=== PATIENT | female | born 1970 | race Hispanic/Latino ===

== ENCOUNTER 2017-02-21 19:03 | Emergency (ER) | payer OTHER ==
[~2017-02-21 19:03] MED LIST: Iopamidol 370 76% 100 ML VIAL ONE
[2017-02-21] MEDS ORDERED: Ondansetron HCl/PF 4 MG/2 ML Vial ONE (19:35)
[2017-02-21 20:06] LABS: #Lymphocytes 0.6 thou/uL (1.20-3.40); #Neutrophils 2.7 thou/uL (1.40-6.50); %Basophils 0.9 % (0.0-1.0); %Eosinophils 1.4 % (0.0-10.0); %Lymphocytes 17.2 % (21.0-51.0); %Monocytes 0.8 % (0.0-10.0); Bilirubin Negative (Negative); Blood, Urine Trace (Negative); Glucose, Urine (Dipstick) Negative (Negative); Hematocrit 30.3 % (36.0-47.0); Ketone, Urine Negative (Negative); Mean Platelet Volume 5.7 fL (7.4-10.4); Nitrite Negative (Negative); Protein, Urine (Dipstick) Negative (Neg-Trace); Red Blood Cell (RBC) Count 3.34 mill/uL (4.20-5.40); Urobilinogen 0.2 mg/dL (0.2-1.0); White Blood Cell (WBC) Count 3.4 thou/uL (4.8-10.8)
[2017-02-21 20:14] LABS: Bacteria/HPF 1+ HPF (None Seen); Hyaline Casts/LPF 0-3 HYALINE CAST LPF (0-3 Hyaline); Squamous Epithelial 0-3 HPF (0-3); WBC/HPF 0-3 HPF (0-3)
[2017-02-21 20:22] LABS: ALT (SGPT) 13 U/L (8-55); AST (SGOT) 18 U/L (5-34); Alkaline Phosphatase 91 U/L (40-150); Anion Gap 16 mmol/L (10-20); BUN (Urea Nitrogen) 20 mg/dL (7.0-18.7); Bilirubin, Total 0.5 mg/dL (0.2-1.2); Calc. Creatinine Clearance 0 mL/min (70-130); Carbon Dioxide 20 mmol/L (22-29); Chloride 105 mmol/L (98-107); Estimated GFR-MDRD 39; Globulin 3.2 g/dL (2.4-3.5); Lipase 50 U/L (8-78); Protein, Total 6.7 g/dL (6.0-8.3)
--- NOTE | 2017-02-21 21:12 | CT ---
CT ABDOMEN AND PELVIS WITH IV CONTRAST: 02/21/17 HISTORY: 46-year-old female with abdominal pain, right lower quadrant pain being treated for UTI. UTI symptom s are better but right lower quadrant pain is worse. FINDINGS: Comparison is made with noncontrast study of 05/24/13. There is a 1 cm peripheral nodule at the left lung base which is larger than that seen on the previo us study (8 mm). The 1 cm peripheral low density lesion in the right lobe of the liver close to the dome is stable. The patient is post cholecystectomy. The spleen, pancreas and adrenal glands are nor mal. There is a tiny cyst in the left kidney. No left sided hydroureteronephrosis seen. There is a r ight sided moderate hydroureteronephrosis. There is slower enhancement of the right renal cortex com pared to the left and perinephric inflammatory changes on the right. Though no calculus is seen in t he urinary tract, there is thickening and periureteric enhancement of the right distal ureter partic ularly at the UV junction. No calculi is seen in the urinary bladder. No free air, free fluid or lymphadenopathy seen in the abdomen or pelvis. The uterus and ovaries are present. There is fecal material in the colon. An abnormally dilated fluid filled appendix is not d efinitely seen. There are vascular calcifications without evidence of aneurysmal dilatation of the a bdominal aorta. There are mild degenerative changes in the spine. IMPRESSION: 1. Right sided hydroureteronephrosis without evidence of calculus. May be due to recent passage of calculus or wall thickening/mass at the UVJ. Cystoscopy would be helpful. 2. Mild interval enlargement of the left basilar lung nodule since 2013. This should be evaluat ed with a dedicated CT scan of the chest on a nonemergent basis. POS: EDUARDO
[2017-02-21] MEDS ORDERED: Fentanyl 100 MCG/2 ML VIAL ONE (21:26)
[2017-02-21] MEDS ORDERED: Acetaminophen 500 MG TAB ONE (22:48)
== END 2017-02-21 22:55 | disposition home or self-care (01) ==
LOC: SCSER 19:03
DX: N13.2 Hydronephrosis with renal and ureteral calculous obstruction (principal); R91.1 Solitary pulmonary nodule; E11.9 Type 2 diabetes mellitus without complications
CPT/HCPCS: 74177; 80053; 81003; 81015; 81025; 83690; 84703; 85025; 87086; 96361; 96374; 96375; 96376; J2270; J2405; J3010

== ENCOUNTER 2017-02-23 11:04 | Inpatient (IN) | payer OTHER ==
[2017-02-23] MEDS ORDERED: Ondansetron HCl/PF 4 MG/2 ML Vial ONE (11:25)
[2017-02-23] MEDS ORDERED: Acetaminophen 500 MG TAB ONE ×2 (11:25→11:27)
[2017-02-23 11:43] LABS: #Lymphocytes 0.5 thou/uL (1.20-3.40); #Monocytes 0.1 thou/uL (0.11-0.59); #Neutrophils 6.5 thou/uL (1.40-6.50); %Basophils 0.2 % (0.0-1.0); %Eosinophils 0.3 % (0.0-10.0); %Lymphocytes 7.5 % (21.0-51.0); %Monocytes 1.6 % (0.0-10.0); Hematocrit 33.1 % (36.0-47.0); Mean Platelet Volume 6.6 fL (7.4-10.4); Red Blood Cell (RBC) Count 3.59 mill/uL (4.20-5.40); White Blood Cell (WBC) Count 7.2 thou/uL (4.8-10.8)
[2017-02-23] MEDS ORDERED: Sodium Chloride 0.9% 100 ML ONE (11:53)
[2017-02-23] MEDS ORDERED: Fentanyl 100 MCG/2 ML VIAL ONE (11:53)
[2017-02-23] MEDS ORDERED: Cefepime 2 GM VIAL ONE (11:53)
[2017-02-23 11:54] LABS: Lactic Acid - Sepsis 3.1 mmol/L (0.5-2.2)
[2017-02-23 12:01] LABS: ALT (SGPT) 22 U/L (8-55); AST (SGOT) 22 U/L (5-34); Alkaline Phosphatase 127 U/L (40-150); Anion Gap 19 mmol/L (10-20); BUN (Urea Nitrogen) 35 mg/dL (7.0-18.7); Bilirubin, Total 0.7 mg/dL (0.2-1.2); Calc. Creatinine Clearance 0 mL/min (70-130); Calcium 8.6 mg/dL (7.8-10.44); Carbon Dioxide 19 mmol/L (22-29); Chloride 98 mmol/L (98-107); Estimated GFR-MDRD 25; Globulin 3.9 g/dL (2.4-3.5); Lipase 8 U/L (8-78); Protein, Total 7.1 g/dL (6.0-8.3)
[2017-02-23 12:02] LABS: Troponin I 0.033 ng/mL (< 0.028)
--- NOTE | 2017-02-23 12:35 | RAD ---
CHEST 1 VIEW: HISTORY: Sepsis protocol. COMPARISON: Chest 1 view, 05/24/13. FINDINGS: Mild increased perihilar markings. No pneumothorax. No large effusion. Cardiac silhouette and med iastinal contour is within normal limits. IMPRESSION: Mild prominence of the perihilar markings may be sequelae of technique. Followup 2 views full inspi ration may be beneficial. No definite evidence for pneumonia. POS: OFF
--- NOTE | 2017-02-23 12:52 | CT ---
NONCONTRAST ENHANCED CT IMAGES OF THE ABDOMEN AND PELVIS: HISTORY: Right-sided flank pain. FINDINGS: Noncontrast enhanced CT images of the abdomen and pelvis are obtained. IV and oral contrast was not given. FINDINGS: Without IV and oral contrast, I cannot rule out the possibility of GI or solid organ pathology. The lung bases are unremarkable. Some areas of scarring are seen in both lung bases. The liver and spleen are unremarkable. The gallbladder is unremarkable. The adrenal glands are unr emarkable. There is some mild right perirenal fat stranding and a small amount of edema in the righ t pericolic gutter. This may represent an inflammatory process. No definite evidence of obstructin g right renal calculi seen. Differential diagnosis includes inflammatory process in the right kidne y versus early appendicitis. An abnormal appendix is not definitively visualized. Repeat exam with oral and IV contrast should be considered, if clinically indicated. No evidence of descending colonic pathology seen. IMPRESSION: Limited exam with no evidence of renal calculi, as described above. POS: EDUARDO
[2017-02-23 12:55] LABS: Bilirubin Negative (Negative); Blood, Urine Moderate (Negative); Glucose, Urine (Dipstick) Negative (Negative); Ketone, Urine Trace mg/dL (Negative); Nitrite Negative (Negative); Protein, Urine (Dipstick) > or equal to 300 mg/dL (Neg-Trace); Urobilinogen 0.2 mg/dL (0.2-1.0)
[2017-02-23 12:59] LABS: Bacteria/HPF 2+ HPF (None Seen); RBC/HPF 21-50 HPF (0-3); WBC/HPF 21-50 HPF (0-3)
[2017-02-23 15:41] VITALS: BMI 30.3
[2017-02-23] MEDS ORDERED: Sodium Chloride 0.9% 1,000 ML IV SCH (15:41)
[2017-02-23] MEDS ORDERED: Dextrose 50% Abboject 50 ML SYRINGE SLOW IVP PRN (16:47)
[2017-02-23] MEDS ORDERED: Ondansetron HCl/PF 4 MG/2 ML Vial IVP PRN ×2 (16:47→17:30)
[2017-02-23] MEDS ORDERED: Ondansetron ODT 4 MG TAB PO PRN (16:47)
[2017-02-23] MEDS ORDERED: HumaLOG 300 UNITS/3 ML VIAL SC PRN (16:47)
[2017-02-23] MEDS ORDERED: Dextrose 5% in Water 1,000 ML IV PRN (16:47)
[2017-02-23] MEDS ORDERED: Vancomycin HCl 1 GM in Sodium Chloride 0.9% 250 ML 250 ML IVPB SCH (17:00)
[2017-02-23] MEDS ORDERED: Ondansetron ODT 4 MG TAB SL PRN (17:30)
[2017-02-23] MEDS: cefTRIAXone\\ROCEPHIN 2 GM in Sodium Chloride 0.9% 100 ML IVPB SCH (17:34)
[2017-02-23] MEDS ORDERED: Vancomycin HCl 750 MG in Sodium Chloride 0.9% 250 ML 250 ML IVPB SCH (18:00)
--- NOTE | 2017-02-23 18:12 | HP ---
DATE OF ADMISSION: 02/23/2017 PRIMARY CARE PROVIDER: Lori Seth M.D. CHIEF COMPLAINT: Flank pain. HISTORY OF PRESENT ILLNESS: This is a 46-year-old female who initially presented to [facility] Emergency Room with complaints of right flank and abdominal pain. The patient appar ently had been evaluated in the emergency room 72 hours prior to this evaluation with similar sympto ms with evidence of a right hydroureter and treated with Tylenol, fentanyl, morphine, and Zofran. T he patient apparently was instructed to follow up with Urology Service for evaluation and released h ome. The patient states her symptoms progressed in the next 48 hours prompting her to seek medical attention on 02/23/2017. Patient admitted with associated nausea, vomiting, and her last bowel move ment was approximately one week prior to this evaluation. The patient states any movement or pressi ng on her abdomen hurts the area on the right flank region. The patient states her symptoms progres sed and worsened and she noted fever documented in the emergency room of 103 degrees Fahrenheit. Th e patient denied any specific blood in the stool or urine, recent trauma, injury or exposure history . The patient admitted to associated chills, fever, and felt generally weak. The patient denies an y prior cystoscopy or instrumentation or recent surgical procedures. [facility] patient received intravenous normal saline, fentanyl, IV cefepime, Zofran, and Tyl enol with multiple markers consistent with sepsis. CT imaging of the abdomen and pelvis showed mild stranding in the perinephric region with associated right hydroureter consistent with pyelonephriti s. PAST MEDICAL HISTORY: 1. Diabetes mellitus type 2, insulin requiring, poor control. 2. Hypertension. PAST SURGICAL HISTORY: 1. Status post cholecystectomy. 2. Status post hernia repair. CURRENT MEDICATIONS: 1. Tramadol 50 mg p.o. q.4-6 hours p.r.n. 2. Zofran ODT 4 mg p.o. q.6 hours p.r.n. 3. Bydureon pen 2 mg subcutaneously every 7 days. 4. Glargine insulin 15 units subcutaneously daily. 5. Synthroid 25 mcg 1 tablet p.o. daily. 6. Losartan 50 mg 1 tablet p.o. daily. 7. Actos 45 mg 1 tablet p.o. daily. 8. Zocor 40 mg p.o. at bedtime. 9. Metformin 1000 mg p.o. q.a.m. ALLERGIES: To LISINOPRIL. FAMILY HISTORY: Positive for diabetes mellitus. SOCIAL HISTORY: The patient resides in [place], [place]. No current alcohol, tobacco or illicit drug u se. Accompanied by her mother and daughter. REVIEW OF SYSTEMS: The following complete review of systems was negative, unless otherwise mentione d in the HPI or below: Constitutional: Weight loss or gain, ability to conduct usual activities. Skin: Rash, itching. Eyes: Double vision, pain. ENT/Mouth: Nose bleeding, neck stiffness, pain, tenderness. Cardiovascular: Palpitations, dyspnea on exertion, orthopnea. Respiratory: Shortness of breath, wheezing, cough, hemoptysis, fever or night sweats. Gastrointestinal: Poor appetite, abdominal pain, heartburn, nausea, vomiting, constipation, or diar dory. Genitourinary: Urgency, frequency, dysuria, nocturia. Musculoskeletal: Pain, swelling. Neurologic/Psychiatric: Anxiety, depression. Allergy/Immunologic: Skin rash, bleeding tendency. Otherwise negative except as stated per HPI. PHYSICAL EXAMINATION: VITAL SIGNS: Currently, blood pressure 82/46, pulse 124, respiratory rate 18, temperature 98.4 degr ees Fahrenheit, T-max 103.1 degrees Fahrenheit, O2 saturation 92% on room air. GENERAL APPEARANCE: This is a 46-year-old female, alert and responsive, in mild to moderat e distress. HEENT: Pupils are equal, round, and reactive to light and accommodation. Extraocular muscles are i ntact. No scleral icterus, no conjunctival injection. Nares patent. OP is clear. Oral mucosa dry . NECK: Supple, no cervical adenopathy, no thyromegaly, no carotid bruits, no JVD appreciated. Cervi panfilo spine with full active and passive range of motion. CHEST: Lungs are clear to auscultation bilaterally. CARDIOVASCULAR: S1 and S2 with tachycardia. ABDOMEN: Round, obese with tenderness to palpation in the right flank, right upper quadrant and rig ht lower quadrant. No rebound or guarding noted. Bowel sounds are positive in all four quadrants. No palpable mass. EXTREMITIES: Warm and dry with fair turgor. No clubbing, cyanosis or asymmetric edema appreciated. Pulses palpable distally at the dorsalis pedis, posterior tibial, and popliteal arteries bilateral ly. Capillary refill less than 2 seconds. NEUROLOGIC: Cranial nerves II-XII are grossly intact. No focal or lateralizing signs appreciated. PERTINENT LABORATORY DATA AND X-RAY FINDINGS: Sodium 131, potassium 4.6, chloride 98, CO2 of 19, BU N 35, creatinine 2.11 with estimated GFR of 25, glucose 293, lactic acid level ranged between 1.03-3 .1, calcium 8.6. LFTs within normal limits. Troponin I 0.033, albumin 3.2, and lipase 8. CBC show ed white blood cell count of 7.2, hemoglobin 12, hematocrit 33, platelet count 211 with 90% neutroph ils. Urinalysis positive for protein greater than 300, moderate blood, trace ketones, trace leukocy te esterase with 21-50 RBCs and WBCs per high powered field, 2+ bacteria. Urine culture from 2016 showed no growth at [address] of the abdomen and pelvis dated 02/23/2017 showed no evidence of obstructing renal calculi. Mild right perirenal fat stranding and small amount of edema in the right pericolic gutter. Portable chest x-ray dated 02/23/2017 showed no acute cardiopulmonary proce ss. EKG dated 02/23/2017 by my interpretation shows sinus tachycardia with rates in the 150s. Norm al R-wave progression noted in the precordial leads. Normal axis. No acute ST-T wave changes appre ciated. ASSESSMENT AND PLAN: 1. Sepsis with acute organ dysfunction. The patient will be admitted to the intermediate care unit . We will continue general sepsis protocol. It appears patient's presentation consistent with pyel onephritis and urinary source. We will continue vancomycin 1 gram IV q.12 hours with additional cef triaxone 2 grams IV q.24 hours. Continue aggressive intravenous fluid hydration with normal saline at 150 mL per hour. Await final urine and blood cultures. Serial lactic acid per protocol. 2. Right pyelonephritis. See #1 above. Continue IV antibiotic therapy and monitor clinical respon se. Continue aggressive IV fluid hydration and encourage increased free water intake. 3. Acute kidney injury. Suspect secondary to #1. Continue IV fluid hydration, avoid nephrotoxic a gents, and contrast media. Hold nephrotoxic medications including metformin. 4. Hyponatremia. Suspect secondary to acute dehydration and hyperglycemia. Continue fluid managem ent as discussed previously. Repeat sodium level in the a.m. 5. Chronic normocytic anemia. Repeat CBC in the a.m. No current evidence to suggest acute blood l oss. Hold nonsteroidal antiinflammatory drugs and anticoagulation. 6. Diabetes mellitus type 2, insulin requiring. We will check A1c level in the a.m. for general co ntrol. Insulin sliding scale for reflexive coverage. ADA diet. Accu-Cheks a.c. and at bedtime. 7. Hypotension. Secondary to sepsis and volume depletion. Continue IV fluid hydration as describe d previously. Avoid antihypertensives. Serial blood pressure assessment. 8. Prophylaxis. Sequential compression devices while in bed. Pepcid 20 mg p.o. b.i.d. 9. Code status is FULL. Surrogate medical decision maker is the patient's mother.
[2017-02-23] MEDS: Acetaminophen 500 MG TAB PO PRN (20:35)
[2017-02-23] MEDS: Sodium Chloride 0.9% 1,000 ML IV SCH (20:36)
[2017-02-23] MEDS ORDERED: Famotidine 20 MG TAB PO SCH (21:00)
--- NOTE | 2017-02-23 21:29 | CON ---
DATE OF SERVICE: 02/23/2017 SERVICE: Pulmonary Medicine. HISTORY OF PRESENT ILLNESS: The patient is a 46-year-old female with past medical history significant for a recent urinary tract infection. She presented to the emergency department yesterd ay with complaints of abdominal discomfort and flank pain. She was having high fevers for a period of 3-4 days. She also had dysuria consistent with previous episodes that she has had of urinary tra ct infection. She was ultimately discharged from the emergency department after a negative CT of th e belly. These symptoms persisted and she continued to have nausea and vomiting. She started getti ng lightheaded and weak and was brought back to the emergency department where a repeat CT scan conf irmed her pyelonephritis. She got 3 liters of IV fluids and is feeling a little bit better but cont inues to have fairly considerable tenderness. Otherwise, she has no difficulty with breathing or ch est discomfort. PAST MEDICAL HISTORY: 1. Hypertension. 2. Type 2 diabetes mellitus. PAST SURGICAL HISTORY: 1. Cholecystectomy. 2. Hernia repair. ALLERGIES: No known drug allergies. MEDICATIONS: List of her inpatient medications was reviewed. No updates were made at this time. SOCIAL HISTORY: Negative for alcohol, tobacco, or illicit drug use. She has no exposure to chemica ls, asbestos, or tuberculosis. FAMILY HISTORY: Noncontributory. REVIEW OF SYSTEMS: General, head, ears, eyes, nose, throat, cardiovascular, respiratory, GI, , mu sculoskeletal, neurologic, and skin is negative except as mentioned in the HPI. PHYSICAL EXAMINATION: VITAL SIGNS: Afebrile, pulse 124, blood pressure 82/46, respirations 18, saturation 92% on room air . GENERAL: The patient is awake and alert, in no apparent distress. LUNGS: Excellent air entry. There is no prolonged expiratory phase. No crackles are appreciated. HEART: Tachycardic. Regular. ABDOMEN: Soft, nontender, nondistended, bowel sounds positive. MUSCULOSKELETAL: No cyanosis or clubbing. There is no pitting in the bilateral lower extremities. NEUROLOGIC: Grossly nonfocal. LABORATORY DATA: WBC 3.4 with 80% neutrophils. It has increased to 7.2 and her neutrophil count is currently 91%. INR 1.0. PH 7.4, pCO2 of 37. Sodium 131, which is trending downward. Creatinine 2.11, up trending and well above baseline of 0.8. Liver function studies are otherwise unremarkable . Lactate was 3.1 but has now cleared to 1.0. Lipase is normal. Troponin 0.033. Urinalysis is po sitive for protein, ketones, blood but negative for nitrites. She has 21-50 white blood cells. Thi s is significantly worse compared to 2 days ago. Urine test was unremarkable on the 7th. Blood sugar 293. IMAGING STUDIES: 1. CT of the abdomen and pelvis is a noncontrasted study. There is no evidence of stones. There a re right-sided inflammatory changes that are perhaps consistent with pyelonephritis. 2. Chest x-ray demonstrates no acute cardiopulmonary abnormality. No evidence for consolidating pn eumonia. ASSESSMENT: 1. Severe sepsis. 2. Pyelonephritis. 3. Acute kidney injury. 4. Non-ST elevation myocardial infarction. 5. Type 2 diabetes mellitus. PLAN: We will provide the patient with little bit of insulin. I agree with the antibiotics. She h as no significant cultures previously and so the current selection is more than adequate to cover he r issue. Since her blood pressures are marginal and she had good response to the initial 3 liters, we will provide her with one additional liter. Interestingly, the hydronephrosis noted from 2 days ago has completely resolved. As such, I do not think a Urology consultation is currently indicated. Pulmonary Critical Care will continue to follow the patient while she remains in this location.
[2017-02-24] MEDS: Acetaminophen 500 MG TAB PO PRN (04:02)
[2017-02-24] MEDS: Sodium Chloride 0.9% 1,000 ML IV SCH (04:03)
[2017-02-24 04:57] LABS: Band 14 % (5-11); Hematocrit 28.6 % (36.0-47.0); Mean Platelet Volume 7.2 fL (7.4-10.4); Neutrophil 80 % (42-75); Red Blood Cell (RBC) Count 2.88 mill/uL (4.20-5.40); White Blood Cell (WBC) Count 14.5 thou/uL (4.8-10.8)
[2017-02-24 05:19] LABS: ALT (SGPT) 13 U/L (8-55); AST (SGOT) 17 U/L (5-34); Alkaline Phosphatase 100 U/L (40-150); Anion Gap 13 mmol/L (10-20); BUN (Urea Nitrogen) 28 mg/dL (7.0-18.7); Bilirubin, Total 0.2 mg/dL (0.2-1.2); Calc. Creatinine Clearance 54 mL/min (70-130); Calcium 6.8 mg/dL (7.8-10.44); Carbon Dioxide 16 mmol/L (22-29); Chloride 111 mmol/L (98-107); Estimated GFR-MDRD 36; Globulin 2.8 g/dL (2.4-3.5)
[2017-02-24] MEDS: Levothyroxine Sodium 25 MCG TAB PO SCH (05:54)
[2017-02-24] MEDS ORDERED: Potassium Chloride 20 MEQ TAB PO SCH (08:30)
[2017-02-24] MEDS ORDERED: Sodium Chloride 0.45% 1,000 ML IV SCH ×2 (08:30→10:01)
[2017-02-24] MEDS ORDERED: Non-Formulary Item 1 EACH (Insulin Glargine,Hum.Rec.Anlog [Toujeo Solostar] 15 UNITS) SQ SCH (09:00)
[2017-02-24] MEDS ORDERED: FLU VACC QS2017-18 36 mo. & older 0.5 ML SYRINGE IM ONE (09:00)
[2017-02-24] MEDS: Insulin Detemir 100 UNITS/ML 15 UNITS in Pre-Filled Syringe 1 EACH SC SCH (09:12)
--- NOTE | 2017-02-24 10:15 | PRG ---
DATE OF SERVICE: 02/24/2017 SERVICE: Pulmonary Medicine. INTERVAL HISTORY: The patient is doing really quite remarkable. Her kidney injury is improving. She continues to have persistent abdominal discomfort. She got some morphine yesterday evening, but had some sweats and other types of discomfort associated with that although it did help with her pain. She denies any current allergies to the MORPHINE. Otherwise, there has been no interval change to her condition. Her blood pressures are much improved. PHYSICAL EXAMINATION: VITAL SIGNS: Afebrile, pulse 99, blood pressure 97/59, respirations 16, saturation 97% on room air. GENERAL: Patient is awake, alert, in no apparent distress. LUNGS: Excellent air entry. There is no prolonged expiratory phase, wheezing, rhonchi or crackles. HEART: Normal rate, regular. ABDOMEN: Soft, nontender, nondistended, bowel sounds positive. MUSCULOSKELETAL: No cyanosis or clubbing. No pitting in the bilateral lower extremities. NEUROLOGIC: Grossly nonfocal. LABORATORY DATA: WBC 14.5, hemoglobin 9.2, platelets 179,000. Neutrophil count is 80% and the band count is 14%. Creatinine 1.54 and gently down trending. BUN 28, bicarbonate 16 with a normal/improving anion gap. Liver function studies remain unremarkable. Blood cultures x2 are growing gram negative rods/E. coli. Urine culture negative to date. ASSESSMENT: 1. Severe sepsis. 2. Pyelonephritis. 3. Acute kidney injury. 4. Non-ST elevation myocardial infarction. 5. Type 2 diabetes mellitus. 6. Recent hydronephrosis which subsequently resolved on repeat CT scan. 7. Obstructive sleep apnea. 8. Obesity hypoventilation syndrome. PLAN: We will continue with the Rocephin. Vancomycin will be discontinued for the time being while we follow up the results of the sensitivities. Her temperature profile is improving. Her blood pressure is stabilized. As such, I think it is reasonable to transition her out of the ICU to the medical unit. Will continue to follow up for 1 additional day. VEE
[2017-02-24] MEDS: Fentanyl 100 MCG/2 ML VIAL SLOW IVP PRN (10:16)
[2017-02-24] MEDS ORDERED: Ketorolac Tromethamine 30 MG/ML VIAL IVP SCH (11:45)
--- NOTE | 2017-02-24 14:11 | PDOC.PN ---
- Subjective Encounter Start Date: 02/24/17 Encounter Start Time: 14:00 Subjective: f/u for sepsis and suspected pyelonephritis. Blood cx showing E. coli -: and tx with Rocephin currently. Still with R flank pain, nausea and -: tachycardia. - Objective Resuscitation Status: Resuscitation Status FULL:Full Resuscitation MAR Reviewed: Yes Vital Signs & Weight: Vital Signs (12 hours) Temp Pulse Resp BP Pulse Ox 02/24/17 11:03 98.2 F 97 16 141/83 H 97 02/24/17 08:00 97.9 F 99 16 97 02/24/17 07:00 97.9 F 99 16 97/59 L 97 02/24/17 03:34 99 02/24/17 03:33 98.6 F 112 H 19 90/51 L 99 Weight Weight 166 lb I&O: 02/23/17 02/24/17 02/25/17 06:59 06:59 06:59 Intake Total 4000 Output Total 1000 Balance 3000 Result Diagrams: 02/24/17 03:52 02/24/17 03:52 Additional Labs: Accuchecks 02/24/17 02/24/17 02/23/17 10:56 05:57 21:04 POC Glucose 181 H 150 H 166 H 02/23/17 02/23/17 17:02 14:15 POC Glucose 170 H 216 H Microbiology 02/23/17 12:42 Urine clean catch Urine Culture - Preliminary NO GROWTH AT 12 HOURS 02/23/17 11:30 Venous blood - Right Arm Blood Culture - Preliminary Gram Negative Temo 02/23/17 11:25 Venous blood - Left Arm Blood Culture - Preliminary Escherichia coli Laboratory Tests 02/23/17 02/23/17 02/24/17 11:25 11:25 03:52 WBC 7.2 Neutrophils % 90.4 H Neutrophils % (Manual) 80 H Band Neuts % (Manual) 14 H Carbon Dioxide 19 L Creatinine 2.11 H EKG Reviewed by me: Yes (Tele - Sinus tachycardia in 120's) Phys Exam - Physical Examination alert, responsive in mild distress HEENT: PERRLA, oral pharynx no lesions Neck: no JVD, supple Respiratory: no wheezing, clear to auscultation bilateral tachycardic R flank tenderness Gastrointestinal: soft, no distention, positive bowel sounds Musculoskeletal: no edema, pulses present Neurological: normal sensation, moves all 4 limbs Psychiatric: A&O x 3 Skin: normal turgor, cap refill <2 seconds Dx/Plan (1) Sepsis with acute organ dysfunction Code(s): A41.9 - SEPSIS, UNSPECIFIED ORGANISM; R65.20 - SEVERE SEPSIS WITHOUT SEPTIC SHOCK Status: Acute Comment: Secondary to E. coli, Continue Rocephin 2gm IV q24h, await final sensitivities, continue IVF's (2) Pyelonephritis Code(s): N12 - TUBULO-INTERSTITIAL NEPHRITIS, NOT SPCF ACUTE OR CHRONIC Status: Acute Comment: R-side involvement by CT imaging, continue Rocephin (3) OLGA (acute kidney injury) Code(s): N17.9 - ACUTE KIDNEY FAILURE, UNSPECIFIED Status: Acute Comment: Secondary to sepsis and volume depletion, improving, continue IVF's, avoid nephrotoxic meds and contrast, repeat BMP in am (4) E coli bacteremia Code(s): R78.81 - BACTEREMIA Status: Acute Comment: See above (5) Tachycardia Code(s): R00.0 - TACHYCARDIA, UNSPECIFIED Status: Acute Comment: Continue tx outlined previously, IVF's, monitor decompensation (6) Hypotension Status: Acute Comment: continue volume replacement, avoid antihypertensives (7) DM II (diabetes mellitus, type II), controlled Code(s): E11.9 - TYPE 2 DIABETES MELLITUS WITHOUT COMPLICATIONS Status: Chronic Comment: Continue Levemir 15u sc daily, ISS - Plan plan discussed w/ family, continue antibiotics, DVT proph w/SCDs continue supportive care -: Add Levaquin 750mg IV x 1 dose today -: Continue Rocephin 2gm IV q24h -: Await final sensitivities -: Toradol 30mg IV q6h * AM lab: BMP, CBC
[2017-02-24] MEDS: Sodium Chloride 0.45% 1,000 ML IV SCH (15:52)
[2017-02-24] MEDS: Ketorolac Tromethamine 30 MG/ML VIAL IVP SCH ×2 (16:54→22:46)
[2017-02-24] MEDS ORDERED: Ketorolac Tromethamine 30 MG/ML VIAL IVP PRN (18:00)
[2017-02-24] MEDS: cefTRIAXone\\ROCEPHIN 2 GM in Sodium Chloride 0.9% 100 ML IVPB SCH (18:55)
[2017-02-25] MEDS: Sodium Chloride 0.45% 1,000 ML IV SCH ×4 (00:29→22:42)
[2017-02-25] MEDS: Fentanyl 100 MCG/2 ML VIAL SLOW IVP PRN (03:21)
[2017-02-25] MEDS: Ketorolac Tromethamine 30 MG/ML VIAL IVP SCH ×2 (04:27→10:28)
[2017-02-25 05:05] LABS: Anion Gap 12 mmol/L (10-20); BUN (Urea Nitrogen) 21 mg/dL (7.0-18.7); Calc. Creatinine Clearance 66 mL/min (70-130); Calcium 7.4 mg/dL (7.8-10.44); Carbon Dioxide 16 mmol/L (22-29); Chloride 111 mmol/L (98-107); Estimated GFR-MDRD 45
[2017-02-25] MEDS: Levothyroxine Sodium 25 MCG TAB PO SCH (05:29)
[2017-02-25 09:43] LABS: Hematocrit 33.4 % (36.0-47.0); Mean Platelet Volume 7.6 fL (7.4-10.4); Red Blood Cell (RBC) Count 3.33 mill/uL (4.20-5.40); White Blood Cell (WBC) Count 11.9 thou/uL (4.8-10.8)
[2017-02-25 10:18] LABS: Band 17 % (5-11); Neutrophil 77 % (42-75)
[2017-02-25] MEDS: Insulin Detemir 100 UNITS/ML 15 UNITS in Pre-Filled Syringe 1 EACH SC SCH (10:29)
[2017-02-25] MEDS ORDERED: Bisacodyl 5 MG TAB PO PRN (11:27)
[2017-02-25] MEDS ORDERED: Sodium Chloride 0.45% 1,000 ML IV SCH (11:27)
[2017-02-25] MEDS ORDERED: Furosemide 20 MG/2 ML VIAL SLOW IVP SCH (11:30)
--- NOTE | 2017-02-25 11:47 | PRG ---
DATE OF SERVICE: 02/25/2017 SERVICE: Pulmonary Medicine INTERVAL HISTORY: The patient is doing fine from cardiovascular and respiratory standpoint. She is breathing comfortably. She continues to have a little bit of flank pain. Otherwise, there has bee n no interval change to her condition. PHYSICAL EXAMINATION: VITAL SIGNS: Afebrile, pulse 119, blood pressure 118/81, respirations 16, saturation 99% on room ai r. GENERAL: The patient is awake, alert, in no apparent distress. LUNGS: Decent air entry with no prolonged expiratory phase, wheezing, rhonchi or crackles. HEART: Normal rate, regular. ABDOMEN: Soft, nontender, nondistended. Bowel sounds positive. MUSCULOSKELETAL: No cyanosis or clubbing. There is no pitting in the bilateral lower extremities. GENITOURINARY: No Kathleen. NEUROLOGIC: Grossly nonfocal. LABORATORY DATA: WBC 11.9, hemoglobin 10.7, platelets 194,000 with a neutrophil count that has drop ped to 77%. Her band count is 17%. Creatinine 1.27, which continues to trend downward, BUN 21. Bi carbonate is stable at 16 with an anion gap that is normalizing. Chloride is normal. Sodium 135. Blood cultures x2 are growing gram negative sekou and/or E. coli. Urine culture is negative to date. ASSESSMENT: 1. Severe sepsis. 2. Pyelonephritis. 3. Acute kidney injury, improving. 4. Non-ST elevation myocardial infarction. 5. Type 2 diabetes mellitus. 6. Recent hydronephrosis which subsequently resolved on repeat CT scan. 7. Herpes of the lip. PLAN: I will initiate antiviral medication. We are awaiting sensitivities on the gram-negative sekou . Rocephin will be continued for the time being. White blood cell count is trending downward. Tem perature profile is actually improving. From my perspective, the patient is stable for transition o ut of IMCU to the floor. She is 10 liters up for this hospital stay. As such, I will provide her w ith a small dose of Lasix.
--- NOTE | 2017-02-25 12:01 | PDOC.PN ---
- Subjective Encounter Start Date: 02/25/17 Encounter Start Time: 11:59 Patient seen at bedside. Still having tachycardia but asymptomatic. Still with significant RLQ and R Flank pain. - Objective Resuscitation Status: Resuscitation Status FULL:Full Resuscitation MAR Reviewed: Yes Vital Signs & Weight: Vital Signs (12 hours) Temp Pulse Resp BP Pulse Ox 02/25/17 11:48 98.7 F 123 H 18 135/79 02/25/17 08:00 98.9 F 119 H 16 99 02/25/17 07:00 98.9 F 119 H 16 118/81 99 02/25/17 03:37 98.6 F 111 H 17 122/75 98 Weight Weight 167 lb 9.6 oz I&O: 02/24/17 02/25/17 02/26/17 06:59 06:59 06:59 Intake Total 4000 3410 Output Total 1000 1400 Balance 3000 2009 Result Diagrams: 02/25/17 04:08 02/25/17 04:08 Additional Labs: Accuchecks 02/25/17 02/25/17 02/24/17 11:07 05:32 21:49 POC Glucose 135 H 76 126 H 02/24/17 17:03 POC Glucose 124 H Phys Exam - Physical Examination Constitutional: NAD HEENT: moist MMs Neck: no JVD Respiratory: no wheezing, clear to auscultation bilateral Cardiovascular: RRR Gastrointestinal: soft Right Flank pain/CVA tenderness Musculoskeletal: pulses present, edema present Neurological: normal sensation, moves all 4 limbs Psychiatric: normal affect, A&O x 3 Dx/Plan (1) OLGA (acute kidney injury) Code(s): N17.9 - ACUTE KIDNEY FAILURE, UNSPECIFIED Status: Acute (2) E coli bacteremia Code(s): R78.81 - BACTEREMIA Status: Acute Comment: See above (3) Pyelonephritis Code(s): N12 - TUBULO-INTERSTITIAL NEPHRITIS, NOT SPCF ACUTE OR CHRONIC Status: Acute (4) Tachycardia Code(s): R00.0 - TACHYCARDIA, UNSPECIFIED Status: Acute (5) DM II (diabetes mellitus, type II), controlled Code(s): E11.9 - TYPE 2 DIABETES MELLITUS WITHOUT COMPLICATIONS Status: Chronic Comment: Continue Levemir 15u sc daily, ISS - Plan cont current plan of care, plan discussed w/ family, continue antibiotics, DVT proph w/SCDs * Change Abx therapy to Zosyn for broader coverage and anaerobic therapy. * Recheck CT of the abdomen to reevaluate pyelonephritis and rule out appendicitis * Continue IV fluids after CT scan * Start Acyclovir for blisters * CMET in AM *
[2017-02-25] MEDS ORDERED: Ketorolac Tromethamine 30 MG/ML VIAL IVP PRN (12:05)
[2017-02-25] MEDS: Acyclovir 400 mg Tablet PO SCH ×3 (12:48→21:04)
[2017-02-25] MEDS: Piperacillin/Tazobactam 3.375 GM in Sodium Chloride 0.9% 100 ML IVPB SCH ×2 (12:50→22:30)
--- NOTE | 2017-02-25 13:37 | CT ---
CT ABDOMEN AND PELVIS WITH CONTRAST: HISTORY: Right-sided abdominal pain. Evaluate for pyelonephritis. COMPARISON: None. TECHNIQUE: Multiple contiguous axial images were obtained in a CT of the abdomen with contrast. Coronal reform ats were performed. FINDINGS: There is abnormal enhancement of the right kidney compared to the left with a tiger-striped appearan ce. This is consistent with pyelonephritis. Subtle stranding changes are seen surrounding the righ t kidney. There is no significant hydronephrosis on either side. The patient is status post cholecystectomy. There is a hypodensity in the right lobe of the liver, which is too small to definitely characterize but likely represents a cyst. The adrenal glands, spl een, and pancreas are unremarkable. No free air or free fluid is seen in the abdomen or pelvis. The reproductive organs are unremarkabl e. The large and small bowel are unremarkable. The appendix is unremarkable. No abdominal or pelv ic lymphadenopathy is seen. There are small bilateral pleural effusions with adjacent atelectasis. The osseous structures and a bdominal wall soft tissues are unremarkable. IMPRESSION: 1. Right pyelonephritis. 2. Hepatic cyst. 3. Small bilateral pleural effusions with adjacent atelectasis. POS: [facility]
[2017-02-25] MEDS ORDERED: ISOVUE-370 76%-LOCM 1 ML ONE (16:10)
[2017-02-25] MEDS: cefTRIAXone\\ROCEPHIN 2 GM in Sodium Chloride 0.9% 100 ML IVPB SCH (21:50)
[2017-02-25] MEDS: Acetaminophen 500 MG TAB PO PRN (22:48)
[2017-02-26] MEDS: Piperacillin/Tazobactam 3.375 GM in Sodium Chloride 0.9% 100 ML IVPB SCH ×2 (05:23→11:54)
[2017-02-26 05:31] LABS: ALT (SGPT) 13 U/L (8-55); AST (SGOT) 16 U/L (5-34); Alkaline Phosphatase 114 U/L (40-150); Anion Gap 11 mmol/L (10-20); BUN (Urea Nitrogen) 15 mg/dL (7.0-18.7); Bilirubin, Total 0.2 mg/dL (0.2-1.2); Calc. Creatinine Clearance 65 mL/min (70-130); Calcium 7.5 mg/dL (7.8-10.44); Carbon Dioxide 19 mmol/L (22-29); Chloride 108 mmol/L (98-107); Estimated GFR-MDRD 45; Globulin 3.2 g/dL (2.4-3.5); Protein, Total 5.4 g/dL (6.0-8.3)
[2017-02-26 05:47] LABS: Band 6 % (5-11); Hematocrit 29.6 % (36.0-47.0); Mean Platelet Volume 7.1 fL (7.4-10.4); Neutrophil 65 % (42-75); Reactive Lymphocytes 1 % (0-10); Red Blood Cell (RBC) Count 3.05 mill/uL (4.20-5.40); Toxic Granulation SLIGHT; White Blood Cell (WBC) Count 6.8 thou/uL (4.8-10.8)
[2017-02-26] MEDS: Levothyroxine Sodium 25 MCG TAB PO SCH (06:10)
[2017-02-26] MEDS: Sodium Chloride 0.45% 1,000 ML IV SCH (06:13)
[2017-02-26] MEDS: Acyclovir 400 mg Tablet PO SCH ×5 (08:48→20:25)
[2017-02-26] MEDS: Insulin Detemir 100 UNITS/ML 15 UNITS in Pre-Filled Syringe 1 EACH SC SCH (08:48)
--- NOTE | 2017-02-26 13:54 | PDOC.PN ---
- Subjective Encounter Start Date: 02/26/17 Encounter Start Time: 13:52 Patient seen and examined. No new complaints. No overnight events - Objective Resuscitation Status: Resuscitation Status FULL:Full Resuscitation MAR Reviewed: Yes Vital Signs & Weight: Vital Signs (12 hours) Temp Pulse Resp BP Pulse Ox 02/26/17 12:00 99.6 F 112 H 18 140/84 100 02/26/17 08:00 99.6 F 117 H 20 99 02/26/17 07:38 99.6 F 117 H 20 133/74 99 02/26/17 04:00 98.3 F 103 H 20 128/76 99 Weight Weight 166 lb I&O: 02/25/17 02/26/17 02/27/17 06:59 06:59 06:59 Intake Total 3410 3672.5 Output Total 1400 3300 Balance 2009 372.5 Result Diagrams: 02/26/17 03:58 02/26/17 03:58 Additional Labs: Accuchecks 02/26/17 02/26/17 02/25/17 11:29 06:12 21:07 POC Glucose 242 H 135 H 160 H 02/25/17 16:10 POC Glucose 153 H EKG Reviewed by me: Yes (Tele ST) Phys Exam - Physical Examination Constitutional: NAD Respiratory: no wheezing, no rhonchi Cardiovascular: no rub tachycardic Gastrointestinal: soft, non-tender, positive bowel sounds Musculoskeletal: no edema Neurological: non-focal, moves all 4 limbs Dx/Plan (1) Sepsis with acute organ dysfunction Code(s): A41.9 - SEPSIS, UNSPECIFIED ORGANISM; R65.20 - SEVERE SEPSIS WITHOUT SEPTIC SHOCK Status: Acute (2) E coli bacteremia Code(s): R78.81 - BACTEREMIA Status: Acute (3) Pyelonephritis Code(s): N12 - TUBULO-INTERSTITIAL NEPHRITIS, NOT SPCF ACUTE OR CHRONIC Status: Acute Comment: Rt side (4) OLGA (acute kidney injury) Code(s): N17.9 - ACUTE KIDNEY FAILURE, UNSPECIFIED Status: Acute (5) Sinus tachycardia Code(s): R00.0 - TACHYCARDIA, UNSPECIFIED Status: Acute Comment: due to sepsis (6) DM2 (diabetes mellitus, type 2) Status: Chronic (7) Obesity (BMI 30.0-34.9) Code(s): E66.9 - OBESITY, UNSPECIFIED Status: Chronic - Plan cont current plan of care, continue antibiotics, DVT proph w/lovenox, DVT proph w/SCDs * DC Zosyn * Cont Ceftriaxone * AM labs * Cont IVF * Add Lovenox * Critical care following Review of Systems - Review of Systems Constitutional: Fever Respiratory: negative: Cough, Dry, Shortness of Breath, Hemoptysis, SOB with Excertion, Pleuritic Pain, Sputum, Wheezing Cardiovascular: negative: Chest Pain, Palpitations, Orthopnea, Paroxysmal Noc. Dyspnea, Edema, Light Headedness, Other - Medications/Allergies Allergies/Adverse Reactions: Allergies Allergy/AdvReac Type Severity Reaction Status Date / Time lisinopril Allergy Verified 02/23/17 15:15 Medications: Current Medications Acetaminophen (Tylenol) 1,000 mg PO Q6H PRN PRN Reason: Headache/Fever or Mild Pain Last Admin: 02/25/17 22:48 Dose: 1,000 mg Acyclovir (Zovirax) 400 mg PO 5XD YAMILE Last Admin: 02/26/17 11:53 Dose: 400 mg Bisacodyl (Dulcolax) 10 mg PO DAILYPRN PRN PRN Reason: Constipation Last Admin: 02/25/17 16:45 Dose: 10 mg Dextrose/Water (Dextrose 50%) 25 gm SLOW IVP PRN PRN PRN Reason: Hypoglycemia Fentanyl (Sublimaze) 50 mcg SLOW IVP Q2H PRN PRN Reason: Moderate to Severe Pain (6-10) Last Admin: 02/25/17 03:21 Dose: 50 mcg Glucagon (Glucagon) 1 mg IM PRN PRN PRN Reason: Hypoglycemia Dextrose/Water (D5w) 1,000 mls @ 0 mls/hr IV .Q0M PRN; As Directed PRN Reason: Hypoglycemia Insulin Detemir 15 units/ (Miscellaneous Medication) 0.15 mls @ 0 mls/hr SC DAILY YAMILE Last Admin: 02/26/17 08:48 Dose: 0.15 mls Sodium Chloride (1/2 Normal Saline) 1,000 mls @ 100 mls/hr IV .Q10H YAMILE Last Admin: 02/26/17 06:13 Dose: 1,000 mls Ceftriaxone Sodium 2 gm/ (Sodium Chloride) 100 mls @ 200 mls/hr IVPB 2200 YAMILE Piperacillin Sod/Tazobactam (Sod 3.375 gm/ Sodium Chloride) 100 mls @ 200 mls/ hr IVPB 0500,1100,1700,2300 [facility] Last Admin: 02/26/17 11:54 Dose: 100 mls Insulin Human Lispro (Humalog) 0 units SC .MODERATE SLIDING SC PRN PRN Reason: Moderate Correctional Scale Last Admin: 02/26/17 12:45 Dose: 4 unit Insulin Human Lispro (Humalog) 0 units SC .BEDTIME SLIDING SC PRN PRN Reason: Bedtime Correctional Scale Ketorolac Tromethamine (Toradol) 15 mg IVP Q6H PRN PRN Reason: Pain Stop: 03/02/17 12:06 Last Admin: 02/25/17 16:50 Dose: 15 mg Levothyroxine Sodium (Synthroid) 25 mcg PO 0600 [facility] Last Admin: 02/26/17 06:10 Dose: 25 mcg Ondansetron HCl (Zofran Odt) 4 mg PO Q6H PRN PRN Reason: Nausea/Vomiting Ondansetron HCl (Zofran) 4 mg IVP Q6H PRN PRN Reason: Nausea/Vomiting Last Admin: 02/24/17 11:36 Dose: 4 mg Sodium Chloride (Flush - Normal Saline) 10 ml IVF Q12HR [facility] Last Admin: 02/26/17 08:52 Dose: Not Given Sodium Chloride (Flush - Normal Saline) 10 ml IVF PRN PRN PRN Reason: Saline Flush
[2017-02-26] MEDS ORDERED: HumaLOG 300 UNITS/3 ML VIAL SC PRN (14:00)
[2017-02-26] MEDS ORDERED: Sodium Chloride 0.45% 1,000 ML IV SCH (15:04)
--- NOTE | 2017-02-26 17:23 | PRG ---
DATE OF SERVICE: 02/26/2017 SERVICE: Pulmonary Medicine. INTERVAL HISTORY: The patient is doing outstanding from a cardiovascular and respiratory standpoint. Her side discomfort has actually improved a little bit. She denies any current fevers, chills, nausea or vomiting. Overnight, there were no overnight events. PHYSICAL EXAMINATION: VITAL SIGNS: Afebrile with a T-max 99.8, pulse 112, blood pressure 140/84, respirations 18, saturation 100% on room air. GENERAL: Patient is awake, alert, in no apparent distress. LUNGS: Decreased air entry. I do not appreciate prolonged expiratory phase, wheezing or crackles. HEART: Normal rate, regular. ABDOMEN: Soft, nontender, nondistended. Bowel sounds positive. MUSCULOSKELETAL: No cyanosis or clubbing. No pitting in the bilateral lower extremities. NEUROLOGIC: Nonfocal. LABORATORY DATA: WBC 6.8, hemoglobin 9.9, platelets 214,000. Creatinine stable at 1.28. Bicarb 19 and improving. Anion gap is normal. Sodium and chloride are slightly low. AST and ALT fall within normal limits. Blood cultures are growing E. coli in 2/2 which were essentially pansensitive. Urine culture is negative to date. ASSESSMENT: 1. Severe sepsis, improving. 2. Pyelonephritis. 3. Acute kidney injury, improving. 4. Non-ST elevation myocardial infarction. 5. Type 2 diabetes mellitus. 6. Lip herpes. PLAN: We will continue supportive care. At this point, we can deescalate her from the Zosyn to the fluoroquinolone. It is reasonable to go to p.o. medication, continue for a total duration of at least 14 days. Pulmonary Critical Care will continue to follow while she remains in this location, but from my perspective, she is stable for transition to the floor. She remains significantly volume overloaded and will provide her with one dose of Lasix once again. MTDD
[2017-02-26] MEDS: Acetaminophen 500 MG TAB PO PRN (17:51)
[2017-02-26] MEDS ORDERED: cefTRIAXone\\ROCEPHIN 2 GM in Sodium Chloride 0.9% 100 ML IVPB SCH (22:00)
[2017-02-27] MEDS: Acyclovir 400 mg Tablet PO SCH ×5 (00:17→21:04)
[2017-02-27] MEDS: Acetaminophen 500 MG TAB PO PRN ×2 (03:53→15:55)
[2017-02-27 04:07] LABS: #Eosinphils 0.1 thou/uL (0.0-0.7); #Lymphocytes 0.9 thou/uL (1.20-3.40); #Monocytes 0.6 thou/uL (0.11-0.59); #Neutrophils 5.8 thou/uL (1.40-6.50); %Lymphocytes 12.2 % (21.0-51.0); %Monocytes 8.1 % (0.0-10.0); Hematocrit 30.4 % (36.0-47.0); Mean Platelet Volume 6.6 fL (7.4-10.4); Red Blood Cell (RBC) Count 3.16 mill/uL (4.20-5.40); White Blood Cell (WBC) Count 7.4 thou/uL (4.8-10.8)
[2017-02-27 04:28] LABS: Anion Gap 12 mmol/L (10-20); BUN (Urea Nitrogen) 12 mg/dL (7.0-18.7); Calc. Creatinine Clearance 73 mL/min (70-130); Calcium 8.2 mg/dL (7.8-10.44); Carbon Dioxide 19 mmol/L (22-29); Chloride 108 mmol/L (98-107); Estimated GFR-MDRD 51; Magnesium 1.5 mg/dL (1.6-2.6)
[2017-02-27] MEDS: Levothyroxine Sodium 25 MCG TAB PO SCH (05:57)
[2017-02-27] MEDS: Insulin Detemir 100 UNITS/ML 15 UNITS in Pre-Filled Syringe 1 EACH SC SCH (08:50)
[2017-02-27] MEDS: Enoxaparin Sodium 30 MG/0.3 ML SYRINGE SC SCH (08:50)
[2017-02-27] MEDS ORDERED: Furosemide 20 MG/2 ML VIAL SLOW IVP SCH ×2 (09:00→14:00)
[2017-02-27] MEDS ORDERED: Magnesium Sulfate 4 GM in Sodium Chloride 0.9% 250 ML 250 ML IVPB SCH (14:00)
--- NOTE | 2017-02-27 14:00 | PRG ---
DATE OF SERVICE: 02/27/2017 SERVICE: Pulmonary Medicine. INTERVAL HISTORY: The patient is doing really well from a respiratory standpoint. She continues to have a little lower extremity swelling, but this has little improved with her Lasix. She denies an y current fevers, chills, nausea, vomiting or chest discomfort. Her belly pain is improving dramati ariadna. She is wondering how long she needs to be in the hospital. I have suggested that this will be up to her admitting service. PHYSICAL EXAMINATION: VITAL SIGNS: Afebrile, pulse 104, blood pressure 135/76, respirations 16, and saturation 99% on mercedes m air. GENERAL: The patient is awake and alert, in no apparent distress. LUNGS: Decent air entry with no prolonged expiratory phase, wheezing or rhonchi. Minimal crackles are present. HEART: Normal rate, regular. ABDOMEN: Soft, nontender, and nondistended. There is no rebound or guarding today. GENITOURINARY: No Kathleen catheter in place. NEUROLOGIC: Grossly nonfocal. LABORATORY DATA: WBC 7.4, hemoglobin 10.5, and platelets 253,000. Creatinine 1.15 and trending toña nward. Sodium 135, chloride 108. Bicarb remains low at 19. Anion gap is stable at 12. Magnesium 1.5. Blood cultures x2 are growing E. coli which is pansensitive. ASSESSMENT: 1. Severe sepsis, improving. 2. Pyelonephritis. 3. Acute kidney injury, resolving. 4. Non-ST elevation myocardial infarction. 5. Type 2 diabetes mellitus. 6. Lip herpes. PLAN: I will give her another dose of Lasix. Magnesium will be replaced. At this time, she is no ongoing requirements for Pulmonary or Critical Care opinion. I will switch her over to an oral fluo roquinolone. From a purely respiratory perspective, she is stable for transition out of the [facility]. She will need at least 2 weeks of antibiotics.
--- NOTE | 2017-02-27 14:18 | PDOC.PN ---
- Subjective Encounter Start Date: 02/27/17 Encounter Start Time: 14:14 Ms. Ferguson is feeling a little better. She notes some continued pain in her right side, but no nausea or vomiting. - Objective Resuscitation Status: Resuscitation Status FULL:Full Resuscitation MAR Reviewed: Yes Vital Signs & Weight: Vital Signs (12 hours) Temp Pulse Resp BP BP Pulse Ox 02/27/17 08:00 96.9 F L 104 H 16 02/27/17 07:21 96.9 F L 104 H 16 135/76 99 02/27/17 05:08 99.9 F H 129 H 18 94 L 02/27/17 03:49 100.4 F H 133 H 16 127/60 97 Weight Weight 166 lb 2 oz I&O: 02/26/17 02/27/17 02/28/17 06:59 06:59 06:59 Intake Total 3672.5 2290 240 Output Total 3300 1100 Balance 372.5 1190 240 Result Diagrams: 02/27/17 03:48 02/27/17 03:48 Additional Labs: Accuchecks 02/27/17 02/27/17 02/26/17 11:20 05:36 20:33 POC Glucose 249 H 141 H 147 H 02/26/17 16:42 POC Glucose 165 H Phys Exam - Physical Examination HEENT: PERRLA Respiratory: no wheezing, no rales, no rhonchi, clear to auscultation bilateral Cardiovascular: RRR, no significant murmur Gastrointestinal: soft, non-tender, positive bowel sounds Musculoskeletal: no edema Dx/Plan (1) Pyelonephritis Code(s): N12 - TUBULO-INTERSTITIAL NEPHRITIS, NOT SPCF ACUTE OR CHRONIC Status: Acute Comment: Rt side (2) Sepsis with acute organ dysfunction Code(s): A41.9 - SEPSIS, UNSPECIFIED ORGANISM; R65.20 - SEVERE SEPSIS WITHOUT SEPTIC SHOCK Status: Acute (3) Sinus tachycardia Code(s): R00.0 - TACHYCARDIA, UNSPECIFIED Status: Acute Comment: due to sepsis (4) DM2 (diabetes mellitus, type 2) Status: Chronic - Plan * Pyelonephritis- improving, Urine culture is positive for E. Coli, which is sensitive to Quinolones * Continue Levaquin, which has been changed to oral * Hypomagnesemia- agree with replacement * DM- blood glucose is stable * Hopefully home in AM if she continues to be afebrile.
[2017-02-27] MEDS: HumaLOG 300 UNITS/3 ML VIAL SC PRN (21:04)
[2017-02-28] MEDS: Acyclovir 400 mg Tablet PO SCH ×4 (00:07→12:46)
[2017-02-28] MEDS: Acetaminophen 500 MG TAB PO PRN ×2 (00:07→09:46)
[2017-02-28 04:05] LABS: #Eosinphils 0.1 thou/uL (0.0-0.7); #Lymphocytes 1.2 thou/uL (1.20-3.40); #Neutrophils 6.2 thou/uL (1.40-6.50); %Basophils 0.4 % (0.0-1.0); %Lymphocytes 14.3 % (21.0-51.0); %Monocytes 11.2 % (0.0-10.0); Mean Platelet Volume 6.4 fL (7.4-10.4); Red Blood Cell (RBC) Count 3.22 mill/uL (4.20-5.40); White Blood Cell (WBC) Count 8.5 thou/uL (4.8-10.8)
[2017-02-28 04:24] LABS: Anion Gap 12 mmol/L (10-20); BUN (Urea Nitrogen) 11 mg/dL (7.0-18.7); Calc. Creatinine Clearance 86 mL/min (70-130); Calcium 8.4 mg/dL (7.8-10.44); Carbon Dioxide 22 mmol/L (22-29); Chloride 104 mmol/L (98-107); Estimated GFR-MDRD 62; Magnesium 1.9 mg/dL (1.6-2.6)
[2017-02-28] MEDS: Levothyroxine Sodium 25 MCG TAB PO SCH (05:15)
[2017-02-28 08:42] VITALS: BP 158/76
[2017-02-28] MEDS: Insulin Detemir 100 UNITS/ML 15 UNITS in Pre-Filled Syringe 1 EACH SC SCH (09:48)
[2017-02-28] MEDS: Enoxaparin Sodium 30 MG/0.3 ML SYRINGE SC SCH (09:51)
[2017-02-28 10:54] VITALS: TEMP 98.6
[2017-02-28] MEDS: HumaLOG 300 UNITS/3 ML VIAL SC PRN (12:38)
--- NOTE | 2017-02-28 13:27 | PDOC.PN ---
- Subjective Encounter Start Date: 02/28/17 Encounter Start Time: 13:25 Ms. Ferguson is feeling much better despite having an elevated temperature earlier. She says the pain on her side has improved, is no longer there. - Objective Resuscitation Status: Resuscitation Status FULL:Full Resuscitation MAR Reviewed: Yes Vital Signs & Weight: Vital Signs (12 hours) Temp Pulse Resp BP Pulse Ox 02/28/17 10:53 98.6 F 02/28/17 09:14 100.2 F H 124 H 20 98 02/28/17 08:40 100.2 F H 124 H 20 158/76 H 98 02/28/17 07:25 97.9 F 65 18 117/77 100 02/28/17 05:42 99.8 F H Weight Weight 164 lb I&O: 02/27/17 02/28/17 03/01/17 06:59 06:59 06:59 Intake Total 2290 1595 Output Total 1100 Balance 1190 1595 Result Diagrams: 02/28/17 03:32 02/28/17 03:32 Additional Labs: Accuchecks 02/28/17 02/28/17 02/27/17 12:01 05:19 20:56 POC Glucose 249 H 151 H 218 H 02/27/17 16:00 POC Glucose 195 H Phys Exam - Physical Examination HEENT: PERRLA Respiratory: no wheezing, no rales, no rhonchi, clear to auscultation bilateral Cardiovascular: RRR, no significant murmur Gastrointestinal: soft, non-tender, positive bowel sounds Musculoskeletal: no edema Dx/Plan (1) Pyelonephritis Code(s): N12 - TUBULO-INTERSTITIAL NEPHRITIS, NOT SPCF ACUTE OR CHRONIC Status: Acute Comment: Rt side (2) Sepsis with acute organ dysfunction Code(s): A41.9 - SEPSIS, UNSPECIFIED ORGANISM; R65.20 - SEVERE SEPSIS WITHOUT SEPTIC SHOCK Status: Acute (3) Sinus tachycardia Code(s): R00.0 - TACHYCARDIA, UNSPECIFIED Status: Acute Comment: due to sepsis (4) DM2 (diabetes mellitus, type 2) Status: Chronic - Plan * Pyelonephritis- slowly imptoving- will give a dose of Gentamicin, and then can be discharged home to continue Levaquin * DM- stable- she can resume her home medications * .
[2017-02-28] MEDS ORDERED: Gentamicin 80 MG/2 ML VIAL IVPB SCH (13:30)
[2017-02-28] MEDS ORDERED: Potassium Chloride 20 MEQ TAB PO SCH (14:00)
--- NOTE | 2017-02-28 17:07 | EKG ---
Test Reason : FEVER Blood Pressure : / mmHG Vent. Rate : 158 BPM Atrial Rate : 158 BPM P-R Int : 116 ms QRS Dur : 072 ms QT Int : 258 ms P-R-T Axes : 060 021 028 degrees QTc Int : 418 ms Sinus tachycardia Otherwise normal ECG Confirmed by NINO FARLEY D.O. ([id number]), news videotape editor MAURICIO ASKEW ([id number]) on 02/28/2017 5:07:30 PM Referred By: DR. FARLEY Confirmed By:NINO FARLEY D.O.
--- NOTE | 2017-02-28 18:22 | DIS ---
DATE OF ADMISSION: 02/23/2017 DATE OF DISCHARGE: 02/28/2017 PRIMARY CARE PHYSICIAN: Lori Seth M.D. DISCHARGE DISPOSITION: Home. PRIMARY DISCHARGE DIAGNOSES: 1. Pyelonephritis. 2. Diabetes mellitus type 2. 3. Hypertension. 4. Acute renal failure, resolved. 5. Sepsis with organ dysfunction. DISCHARGE MEDICATIONS: Include Levaquin 750 mg 1 p.o. daily for 10 days as well as she is to contin ue metformin 1000 mg daily, simvastatin 40 mg daily, Actos 45 mg daily, losartan 50 mg daily, Synthr oid 25 mcg daily, Lantus insulin 15 units daily, Bydureon 2 mg subcu every 7 days and aspirin 325 mg daily. CODE STATUS: FULL CODE. ALLERGIES: LISINOPRIL. HOSPITAL COURSE: Ms. Ferguson is a pleasant 46-year-old female, who presented to the emergency room w ith complaints of flank pain and she was also having a high fever with a temperature of 103. When s he was evaluated in the emergency room, she was found to have pyelonephritis with sepsis as well as acute renal failure with a creatinine of 2.1. She was admitted and started on IV antibiotics as wel l as given IV fluids for fluid resuscitation. Blood cultures grew out E. coli, which was pansensiti ve and she was transitioned to IV quinolone and as her symptoms improved, she was subsequently trans itioned to an oral Levaquin. She was also given a single dose of gentamicin as well. Her renal fun ction returned towards normal and at the time of discharge, her creatinine was 0.97. As such, she w as subsequently discharged home and to have close followup with her primary care physician in the ou tpatient setting within approximately 1 week and she is also to resume her previous home medications .
[2017-03-02] MEDS ORDERED: Exenatide Microspheres [Bydureon Pen] 2 MG SC SCH (09:00)
== END 2017-02-28 16:30 | disposition home or self-care (01) | DRG 872 ==
LOC: SCSER 11:04 → IMCU/EMU 11:17 → ONC 02-26 19:05
PROVIDERS: ADMIT Family Medicine; ATTEND Family Medicine
DX: A41.51 Sepsis due to Escherichia coli [E. coli] (principal); I95.89 Other hypotension; N17.9 Acute kidney failure, unspecified; E66.2 Morbid (severe) obesity with alveolar hypoventilation; E11.65 Type 2 diabetes mellitus with hyperglycemia; E87.1 Hypo-osmolality and hyponatremia; N10 Acute pyelonephritis; R65.20 Severe sepsis without septic shock; I10 Essential (primary) hypertension; Z68.30 Body mass index [BMI] 30.0-30.9, adult; B00.1 Herpesviral vesicular dermatitis; Z79.4 Long term (current) use of insulin; D64.9 Anemia, unspecified; E83.42 Hypomagnesemia; E86.0 Dehydration
CPT/HCPCS: 36415; 36416; 71010; 74176; 74177; 80048; 80053; 81003; 81015; 82553; 83605; 83690; 83735; 83880; 84484; 85007; 85025; 85027; 87040; 87077; 87086; 87149; 87186; 93005; 96365; 96375; A4216; J0692; J0696; J1580; J1650; J1815; J1885; J1940; J2405; J2543; J3010; J3370; J3475; J7050

== ENCOUNTER 2019-07-13 23:29 | Emergency (ER) | payer OTHER ==
[2019-07-13] MEDS ORDERED: Ondansetron PF 4 MG/2 ML Vial ONE (23:54)
[2019-07-13] MEDS ORDERED: Morphine 4 MG/ML VIAL ONE (23:54)
--- NOTE | 2019-07-14 00:15 | RAD ---
Portable frontal chest radiograph: 07/13/2019 COMPARISON: 02/23/2017 HISTORY: Epigastric pain FINDINGS: Lungs are clear. Heart and mediastinal contours appear within normal limits. IMPRESSION: No acute findings.
[2019-07-14 00:20] LABS: #Eosinphils 0.1 thou/uL (0.0-0.7); #Monocytes 0.4 thou/uL (0.11-0.59); #Neutrophils 5.8 thou/uL (1.40-6.50); %Basophils 0.2 % (0.0-1.0); %Eosinophils 1.3 % (0.0-10.0); %Lymphocytes 13.9 % (21.0-51.0); %Monocytes 5.3 % (0.0-10.0); %Neutrophils 79.3 % (42.0-75.0); Mean Corpuscular HGB CONC 34.1 g/dL (32.0-36.0); Mean Corpuscular Hemoglobin 30.3 pg (27.0-31.0); Mean Corpuscular Volume 88.8 fL (78.0-98.0); Mean Platelet Volume 7.1 fL (7.4-10.4); Platelet Count 284 thou/uL (130-400); RBC Distribution Width 13.1 % (11.5-14.5); Red Blood Cell (RBC) Count 3.96 mill/uL (4.20-5.40); White Blood Cell (WBC) Count 7.3 thou/uL (4.8-10.8)
[2019-07-14 00:40] LABS: ALT (SGPT) 8 U/L (8-55); AST (SGOT) 12 U/L (5-34); Alkaline Phosphatase 118 U/L (40-110); Anion Gap 18 mmol/L (10-20); BUN (Urea Nitrogen) 26 mg/dL (7.0-18.7); Bilirubin, Total 0.3 mg/dL (0.2-1.2); Calc. Creatinine Clearance 0 mL/min (70-130); Calcium 9.1 mg/dL (7.8-10.44); Carbon Dioxide 17 mmol/L (22-29); Chloride 103 mmol/L (98-107); Estimated GFR-MDRD 40; Globulin 3.3 g/dL (2.4-3.5); Glucose 253 mg/dL (70-105); Lipase 136 U/L (8-78); Potassium 4.1 mmol/L (3.5-5.1); Protein, Total 7.3 g/dL (6.0-8.3); Sodium 134 mmol/L (136-145)
[2019-07-14] MEDS ORDERED: Sucralfate 1 GM/10 ML UDCUP ONE (01:37)
[2019-07-14] MEDS ORDERED: Lorazepam 2 MG/ML VIAL ONE (01:49)
--- NOTE | 2019-07-14 08:01 | CT ---
PRELIMINARY REPORT/[facility]/EMERGENCY AFTER HOURS PROCEDURE: EXAM: CT scan of the abdomen and pelvis with contrast CLINICAL HISTORY: ER 1... F49 reports to the ED with c/o epigastric pain, nausea since yesterday, pt reports seeing doc today at urgent care earlier for stomach pain, given Lansoprazole. Pt reports. Pt is type 2 diabetic . Surgical hx of Cholecystectomy (Lithotripsy prior), Hernia repair TECHNIQUE: Axial computed tomography images of the abdomen and pelvis without intravenous contrast. CONTRAST: None. COMPARISON: None provided. FINDINGS: LUNG BASES: 6 mm pulmonary nodule in posterior left lower lobe. Mild bibasilar dependent subsegmental atelectasis. LIVER: Unremarkable. GALLBLADDER AND BILE DUCTS: Surgical clips in the gallbladder fossa from prior cholecystectomy. PANCREAS: Unremarkable. SPLEEN: Unremarkable. ADRENAL GLANDS: Unremarkable. KIDNEYS, URETERS, AND BLADDER: Unremarkable. No hydronephrosis or nephrolithiasis. No ureteral or sherrie dder calculi. STOMACH AND BOWEL: No obstruction. No wall thickening. No CT evidence of colitis or acute diverticuli tis. APPENDIX: No CT evidence for appendicitis. PERITONEUM: No free fluid. No free air. LYMPH NODES: No lymphadenopathy. REPRODUCTIVE: Unremarkable as visualized. VASCULATURE: No aortic aneurysm. ABDOMINAL WALL AND SOFT TISSUES: Unremarkable. BONES: No fracture or suspicious osseous abnormality. MISCELLANEOUS: Osteitis condensans ilii. IMPRESSION: No acute intra-abdominal or pelvic abnormality. ELECTRONICALLY SIGNED BY: Jae Painter D.O. Jul 14, 2019 1:56:17 AM STORE SALES LEADER This report is intended for review by the ordering physician only, in accordance of law. If you recei ve this report in error, please call [facility] at [phone]. FINAL REPORT EMERGENCY AFTER HOURS CT ABDOMEN AND PELVIS WITHOUT CONTRAST: COMPARISON: 06/26/2016. FINDINGS/IMPRESSION: I agree with the findings and impression given in the preliminary report per [facility] physici an. No evidence of acute intra-abdominal/pelvic abnormality.
== END 2019-07-14 04:01 | disposition home or self-care (01) ==
LOC: ERS 23:29
DX: K29.70 Gastritis, unspecified, without bleeding (principal); R11.0 Nausea; E11.9 Type 2 diabetes mellitus without complications; I10 Essential (primary) hypertension; I25.2 Old myocardial infarction; Z79.84 Long term (current) use of oral hypoglycemic drugs; Z79.899 Other long term (current) drug therapy
CPT/HCPCS: 36415; 71045; 74176; 80053; 83690; 84484; 85025; 93005; 96361; 96374; 96375; J2060; J2270; J2405

== ENCOUNTER 2019-09-03 13:45 | Emergency (ER) | payer OTHER ==
[2019-09-03] MEDS ORDERED: Ketorolac Tromethamine 30 MG/ML VIAL ONE (14:03)
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
== END 2019-09-03 16:11 | disposition home or self-care (01) ==
LOC: ERS 13:45
DX: S39.012A Strain of muscle, fascia and tendon of lower back, initial encounter (principal); E10.65 Type 1 diabetes mellitus with hyperglycemia; I10 Essential (primary) hypertension; I25.2 Old myocardial infarction; Z79.84 Long term (current) use of oral hypoglycemic drugs; Z79.899 Other long term (current) drug therapy; V89.2XXA Person injured in unspecified motor-vehicle accident, traffic, initial encounter
CPT/HCPCS: 36416; 72100; 96361; 96374; J1885

== ENCOUNTER 2019-10-27 18:16 | Emergency (ER) | payer OTHER ==
[2019-10-27 19:08] LABS: #Lymphocytes 0.7 thou/uL (1.20-3.40); #Monocytes 0.2 thou/uL (0.11-0.59); #Neutrophils 4.5 thou/uL (1.40-6.50); %Basophils 0.2 % (0.0-1.0); %Eosinophils 0.2 % (0.0-10.0); %Lymphocytes 13.2 % (21.0-51.0); %Monocytes 4.4 % (0.0-10.0); Hemoglobin 11.6 g/dL (12.0-16.0); Mean Corpuscular HGB CONC 31.4 g/dL (32.0-36.0); Mean Platelet Volume 7.4 fL (7.4-10.4); Platelet Count 280 thou/uL (130-400); RBC Distribution Width 13.7 % (11.5-14.5); White Blood Cell (WBC) Count 5.5 thou/uL (4.8-10.8)
[2019-10-27 19:31] LABS: ALT (SGPT) 8 U/L (8-55); AST (SGOT) 17 U/L (5-34); Albumin 3.7 g/dL (3.5-5.0); Alkaline Phosphatase 105 U/L (40-110); Anion Gap 16 mmol/L (10-20); BUN (Urea Nitrogen) 23 mg/dL (7.0-18.7); Bilirubin, Total 0.3 mg/dL (0.2-1.2); CK (CPK) 27 U/L (29-168); Calc. Creatinine Clearance 0 mL/min (70-130); Calcium 8.7 mg/dL (7.8-10.44); Carbon Dioxide 19 mmol/L (22-29); Chloride 105 mmol/L (98-107); Estimated GFR-MDRD 36; Glucose 247 mg/dL (70-105); Potassium 4.2 mmol/L (3.5-5.1); Protein, Total 7.7 g/dL (6.0-8.3); Sodium 136 mmol/L (136-145)
--- NOTE | 2019-10-27 20:15 | RAD ---
PORTABLE CHEST ONE VIEW: 10/27/19 at 6:49 p.m. HISTORY: COVI-19 positive with chest pain, shortness of breath. COMPARISON: 07/13/19. FINDINGS: The heart size is normal. The lungs are expanded without focal areas of consolidation, pneumothoraces , or pleural effusions. IMPRESSION: No acute process. POS: [facility]
[2019-10-27] MEDS ORDERED: Ketorolac Tromethamine 30 MG/ML VIAL ONE (20:20)
== END 2019-10-27 23:07 | disposition home or self-care (01) ==
LOC: ERS 18:16
DX: U07.1 COVID-19 (principal); E11.9 Type 2 diabetes mellitus without complications; I10 Essential (primary) hypertension; I25.2 Old myocardial infarction; E78.5 Hyperlipidemia, unspecified
CPT/HCPCS: 71045; 80053; 82550; 84484; 85025; 93005; 94760; 96361; 96374; J1885